=== PATIENT | female | born 1960 | race Caucasian/White ===

== ENCOUNTER 2017-03-09 14:25 | Emergency (ER) | payer MEDICARE, MEDICAID ==
--- NOTE | 2017-03-09 15:35 | UC ---
Throat Pain/Nasal Edilberto HPI - HPI Summary HPI Summary: 56 year old with cough. Subjective fever, bilateral ear pressure, facial pressure, "very little" nasal congestion, PND, sore throat, painful swallowing, mostly nonproductive, myalgias, chills, and tried worsening over four days. No known close contacts with similar symptoms. Patient is unemployed. No PCP. Has had pneumonia in the past numerous times and also CVA and is disabled. She does smoke still but not since she has been sick [ End ] - History of Current Complaint Chief Complaint: UCRespiratory Stated Complaint: RESPIRATORY/FLU SYMPTOMS Time Seen by Provider: 03/09/17 15:18 Hx Obtained From: Patient Onset/Duration: Gradual Onset Severity: Moderate Cough: Productive Associated Signs & Symptoms: Positive: Wheezing, Sinus Discomfort, Nasal Discharge - Allergies/Home Medications Allergies/Adverse Reactions: Allergies Allergy/AdvReac Type Severity Reaction Status Date / Time No Known Allergies Allergy Verified 03/09/17 15:16 Home Medications: Home Medications GuaiFENesin DM* [Robitussin DM*] 10 ml PO Q4H PRN 03/09/17 [History Confirmed ] Guaifenesin [Mucinex Maximum Strength] 1,200 mg PO BID PRN 03/09/17 [History Confirmed 03/09/17] PMH/Surg Hx/FS Hx/Imm Hx Previously Healthy: Yes Respiratory History: Bronchitis, Pneumonia Neurological History: CVA - Surgical History Surgical History: Yes Surgery Procedure, Year, and Place: Hysterectomy; Laporoscopy - Family History Known Family History: Positive: Cardiac Disease - Social History Occupation: Unemployed Lives: With Family Alcohol Use: Occasionally Substance Use Type: None Smoking Status (MU): Light Every Day Tobacco Smoker Amount Used/How Often: 1/4 PPD Length of Time of Smoking/Using Tobacco: Since Age 7 Cessation Counseling: Patient Advised to Stop - Immunization History Most Recent Influenza Vaccination: Not the 2016/2017 Season Review of Systems Constitutional: Fatigue ENT: Nasal Discharge, Sinus Congestion Respiratory: Shortness Of Breath, Cough Is Patient Immunocompromised?: No All Other Systems Reviewed And Are Negative: Yes Physical Exam Triage Information Reviewed: Yes Appearance: Well-Appearing, No Pain Distress, Well-Nourished Vital Signs: Initial Vital Signs Temp 98.5 F 03/09/17 15:14 Pulse 72 03/09/17 15:14 Resp 18 03/09/17 15:14 BP 170/102 03/09/17 15:14 Pulse Ox 99 03/09/17 15:14 Vital Signs Reviewed: Yes Eye Exam: Normal ENT Exam: Normal Dental Exam: Normal Neck exam: Normal Neck: Positive: 1 Respiratory Exam: Normal Respiratory: Positive: Chest non-tender, Lungs clear, Normal breath sounds, No respiratory distress, No accessory muscle use. Negative: Respiratory distress, Decreased breath sounds, Accessory muscle use, Crackles, Rhonchi, Stridor, Wheezing Cardiovascular Exam: Normal Abdominal Exam: Normal Musculoskeletal Exam: Normal Neurological Exam: Normal Psychological Exam: Normal Skin Exam: Normal Throat Pain/Nasal Course/Dx - Course Course Of Treatment: exam normal . VSS. concern with the history of numerous pneumonia -- advise to f/u with pcp consider the pneumovax. if sx worsen RTO or go to ED. she is agreeable at this time. STOP SMOKING ! - Differential Dx/Diagnosis Differential Diagnosis/HQI/PQRI: Pharyngitis, Sinusitis, URI Provider Diagnoses: bronchitis and tobacco use disorder Discharge - Discharge Plan Condition: Good Disposition: HOME Prescriptions: Benzonatate [Benzonatate 200 MG] 200 mg PO TID #20 cap Doxycycline (Monohydrate) [Doxycycline Monohydrate] 100 mg PO BID #20 cap Patient Education Materials: How to Stop Smoking (ED), Acute Bronchitis (ED) Referrals: No Primary Care Phys,NOPCP [Medical Doctor] - Additional Instructions: Please follow up with a primary care doctor for follow up and routine care.
[2017-03-09 16:08] VITALS: BP 170/102
== END 2017-03-09 16:02 | disposition home or self-care (01) ==
LOC: UCCORT 14:25
DX: J40 Bronchitis, not specified as acute or chronic (principal); F17.210 Nicotine dependence, cigarettes, uncomplicated
CPT/HCPCS: 99202; G0463